=== PATIENT | male | born 1945 | race Caucasian/White ===

== ENCOUNTER 2019-01-29 07:45 | Day surgery (SDC) | payer MEDICARE, OTHER ==
[~2019-01-29] VITALS: Ht 167.6 cm; Wt 93.6 kg
[~2019-01-29 07:45] MED LIST: AMLO-511 PO; BUPR75FI3 TD; DICLOFENAC SODIUM 0.1% 2.5 ML OPHTHALMIC SOLUTION ONE; DOCU250C91 PO; FENO160 PO; HYDR-3965 PO; INSNOV SQ; LIRA0.6P SQ; LORA10TA7 PO; LOSA25TA41 PO; MELO-107 PO; METF500T7 PO; MOXIFLOXACIN HCL 0.5% 3 ML OPHTHALMIC SOLUTION ONE; NAPR-1181 PO; PHENYLEPHRINE HCL 2.5% 2 ML OPHTHALMIC SOLUTION ONE; PROP80SR PO; RINGERS SOLUTION,LACTATED 500 ML IV ONE; SERT50TA12 PO; TROPICAMIDE 1% 2 ML OPHTHALMIC SOLUTION ONE; VITAD1000 PO
[2019-01-29] MEDS ORDERED: POVIDONE-IODINE 10% 15 ML SOLUTION UD TP ONE (07:46)
[2019-01-29] MEDS ORDERED: HYALURONATE SODIUM 12 MG/ML 0.8 ML SYRINGE IO ONE (07:46)
[2019-01-29] MEDS ORDERED: MIDAZOLAM HCL 2 MG/2 ML VIAL IVP ONE (07:46)
[2019-01-29] MEDS ORDERED: DEXAMETHASONE SOD PHOS 4 MG/ML VIAL IVP ONE (07:46)
[2019-01-29] MEDS ORDERED: HYALURONATE SOD/CHONDROITIN SOD 0.5 ML VIAL IO ONE (07:46)
[2019-01-29] MEDS ORDERED: LIDOCAINE/PF 1% 2 ML VIAL IM ONE (07:46)
[2019-01-29] MEDS ORDERED: FentaNYL CITRATE-PF 100 MCG/2 ML VIAL IVP ONE (07:46)
[2019-01-29] MEDS ORDERED: RINGERS SOLUTION,LACTATED 500 ML IV ONE (08:00)
[2019-01-29] MEDS ORDERED: DICLOFENAC SODIUM 0.1% 2.5 ML OPHTHALMIC SOLUTION OS ONE (08:00)
[2019-01-29] MEDS ORDERED: MOXIFLOXACIN HCL 0.5% 3 ML OPHTHALMIC SOLUTION OS ONE (08:00)
[2019-01-29] MEDS: PHENYLEPHRINE HCL 2.5% 2 ML OPHTHALMIC SOLUTION OS SCH ×2 (08:40→08:46)
[2019-01-29] MEDS: TROPICAMIDE 1% 2 ML OPHTHALMIC SOLUTION OS SCH ×2 (08:40→08:46)
[2019-01-29 08:44] LABS: GLUCOMETER DEV NAME(LOC) SDS.; GLUCOSE,POINT OF CARE 114 MG/DL (70-110)
== END 2019-01-29 12:20 | disposition home or self-care (01) ==
LOC: SDS 07:45
PROVIDERS: ATTEND Specialist
DX: E11.36 Type 2 diabetes mellitus with diabetic cataract (principal); H25.12 Age-related nuclear cataract, left eye; E11.3293 Type 2 diabetes mellitus with mild nonproliferative diabetic retinopathy without macular edema, bilateral; H52.03 Hypermetropia, bilateral; I10 Essential (primary) hypertension; E78.00 Pure hypercholesterolemia, unspecified; F32.9 Major depressive disorder, single episode, unspecified; M54.9 Dorsalgia, unspecified; M54.2 Cervicalgia; E66.3 Overweight; Z79.82 Long term (current) use of aspirin; Z98.890 Other specified postprocedural states
CPT/HCPCS: 66984; 82962; C1780; J1100; J2250; J3010; J3490 ×2; J7120

== ENCOUNTER 2019-03-12 07:27 | Day surgery (SDC) | payer MEDICARE, OTHER ==
[~2019-03-12] VITALS: Ht 167.6 cm; Wt 91.0 kg
[~2019-03-12 07:27] MED LIST changes: +0.9% SODIUM CHLORIDE 10 ML SYRINGE IVP PRN; +DICLOFENAC SODIUM 0.1% 2.5 ML OPHTHALMIC SOLUTION OD ONE; +MOXIFLOXACIN HCL 0.5% 3 ML OPHTHALMIC SOLUTION OD ONE
[2019-03-12] MEDS ORDERED: HYALURONATE SOD/CHONDROITIN SOD 0.5 ML VIAL IO ONE (07:28)
[2019-03-12] MEDS ORDERED: DEXAMETHASONE SOD PHOS 4 MG/ML VIAL IVP ONE (07:28)
[2019-03-12] MEDS ORDERED: TETRACAINE HCL VISCOUS 0.5% 0.6 ML OPHTHALMIC SOLUTION OD ONE (07:28)
[2019-03-12] MEDS ORDERED: FentaNYL CITRATE-PF 100 MCG/2 ML VIAL IVP ONE (07:28)
[2019-03-12] MEDS ORDERED: HYALURONATE SODIUM 12 MG/ML 0.8 ML SYRINGE IO ONE (07:28)
[2019-03-12] MEDS ORDERED: LIDOCAINE/PF 1% 2 ML VIAL IM ONE (07:28)
[2019-03-12] MEDS ORDERED: POVIDONE-IODINE 10% 15 ML SOLUTION UD TP ONE (07:28)
[2019-03-12] MEDS ORDERED: MIDAZOLAM HCL 2 MG/2 ML VIAL IVP ONE (07:28)
[2019-03-12] MEDS ORDERED: PRAV20TA4 PO (08:08)
[2019-03-12] MEDS: TROPICAMIDE 1% 2 ML OPHTHALMIC SOLUTION OD SCH ×2 (08:15→08:21)
[2019-03-12] MEDS: PHENYLEPHRINE HCL 2.5% 2 ML OPHTHALMIC SOLUTION OD SCH ×2 (08:15→08:21)
[2019-03-12 08:19] LABS: GLUCOMETER DEV NAME(LOC) SDS.; GLUCOSE,POINT OF CARE 176 MG/DL (70-110)
== END 2019-03-12 12:40 | disposition short-term general hospital (02) ==
LOC: SURGERY 07:27
PROVIDERS: ATTEND Specialist
DX: E11.36 Type 2 diabetes mellitus with diabetic cataract (principal); H25.11 Age-related nuclear cataract, right eye; I10 Essential (primary) hypertension; I25.2 Old myocardial infarction; E78.00 Pure hypercholesterolemia, unspecified; Z87.891 Personal history of nicotine dependence; Z79.82 Long term (current) use of aspirin; Z79.899 Other long term (current) drug therapy; Z98.890 Other specified postprocedural states
CPT/HCPCS: 66984; 82962; J1100; J3490 ×2; J7120; 65785; J2250; J3010

== ENCOUNTER 2024-06-11 10:17 | Emergency (ER) | payer MEDICARE, MEDICAID ==
[~2024-06-11] VITALS: Ht 167.6 cm; Wt 77.2 kg
[~2024-06-11 10:17] MED LIST changes: -0.9% SODIUM CHLORIDE 10 ML SYRINGE IVP PRN; +AMLO-257 PO; -AMLO-511 PO; -BUPR75FI3 TD; +CHOL100018 PO; -DICLOFENAC SODIUM 0.1% 2.5 ML OPHTHALMIC SOLUTION OD ONE; -DICLOFENAC SODIUM 0.1% 2.5 ML OPHTHALMIC SOLUTION ONE; -DOCU250C91 PO; -FENO160 PO; +FENO160T75 PO; -HYDR-3965 PO; +HYDR-4062 PO; +LOSA-381 PO; -LOSA25TA41 PO; -MELO-107 PO; +METF-81 PO; -METF500T7 PO; -MOXIFLOXACIN HCL 0.5% 3 ML OPHTHALMIC SOLUTION OD ONE; -MOXIFLOXACIN HCL 0.5% 3 ML OPHTHALMIC SOLUTION ONE; -NAPR-1181 PO; -PHENYLEPHRINE HCL 2.5% 2 ML OPHTHALMIC SOLUTION ONE; +PRAV20TA4 PO; +PROP80CA41 PO; -PROP80SR PO; -RINGERS SOLUTION,LACTATED 500 ML IV ONE; +SERT-158 PO; -SERT50TA12 PO; -TROPICAMIDE 1% 2 ML OPHTHALMIC SOLUTION ONE; -VITAD1000 PO
[2024-06-11 10:40] VITALS: TEMP 97.1
[2024-06-11 10:56] LABS: GLUCOMETER DEV NAME(LOC) ERT.5; GLUCOSE,POINT OF CARE 105 MG/DL (70-110)
[2024-06-11] MEDS: PROPARACAINE HCL 0.5% 15 ML OPHTHALMIC SOLUTION OS ONE (12:33)
[2024-06-11] MEDS: FLUORESCEIN SODIUM 1 MG STRIP OS ONE (12:34)
[2024-06-11 13:05] LABS: GLUCOMETER DEV NAME(LOC) ER.7; GLUCOSE,POINT OF CARE 84 MG/DL (70-110)
[2024-06-11] MEDS ORDERED: ERYT3.5O8 OS (13:06)
[2024-06-11] MEDS: ERYTHROMYCIN 0.5% 3.5 GM TUBE OPHTHALMIC OINTMENT OS ONE (13:27)
[2024-06-11 13:32] VITALS: BP 140/77; PULSE 72; RESP 17
== END 2024-06-11 13:57 | disposition home or self-care (01) ==
LOC: EMS 10:17
DX: H10.9 Unspecified conjunctivitis (principal); E11.9 Type 2 diabetes mellitus without complications; E78.00 Pure hypercholesterolemia, unspecified; F32.A Depression, unspecified; Z88.6 Allergy status to analgesic agent
CPT/HCPCS: 82962; 99284

== ENCOUNTER 2024-11-14 10:31 | Emergency (ER) | payer MEDICARE, MEDICAID ==
[~2024-11-14] VITALS: Ht 167.6 cm; Wt 86.4 kg
[~2024-11-14 10:31] MED LIST changes: +ERYT3.5O8 OS
[2024-11-14 10:48] VITALS: BP 147/60; PULSE 82; RESP 18; TEMP 97.8; O2SAT 100
[2024-11-14 11:05] LABS: GLUCOMETER DEV NAME(LOC) ERT.6; GLUCOSE,POINT OF CARE 125 MG/DL (70-110)
[2024-11-14] MEDS ORDERED: CHOL25TA4 PO (12:27)
[2024-11-14] MEDS ORDERED: PROP80TA4 PO (12:27)
[2024-11-14] MEDS ORDERED: SEMA2PEN SQ (12:27)
[2024-11-14] MEDS ORDERED: METF-446 PO (12:27)
[2024-11-14] MEDS ORDERED: GABA-1181 PO (12:27)
[2024-11-14] MEDS ORDERED: EMPA10TA3 PO (12:27)
[2024-11-14] MEDS ORDERED: ATOR20TA65 PO (12:27)
[2024-11-14] MEDS ORDERED: FLUT16SP NASAL (12:27)
[2024-11-14] MEDS: ACETAMINOPHEN 500 MG TABLET PO ONE (12:28)
== END 2024-11-14 14:10 | disposition home or self-care (01) ==
LOC: EMS 10:31
DX: S20.219A Contusion of unspecified front wall of thorax, initial encounter (principal); S80.211A Abrasion, right knee, initial encounter; F32.A Depression, unspecified; E11.9 Type 2 diabetes mellitus without complications; E78.00 Pure hypercholesterolemia, unspecified; Z79.84 Long term (current) use of oral hypoglycemic drugs; Z79.85 Long-term (current) use of injectable non-insulin antidiabetic drugs; Z79.899 Other long term (current) drug therapy; Z88.6 Allergy status to analgesic agent
CPT/HCPCS: 71101; 82962; 99283